=== PATIENT | female | born 1960 | race Caucasian/White ===

== ENCOUNTER 2022-06-16 12:06 | Outpatient (REF) | payer OTHER, SELFPAY ==
[2022-06-19 11:27] LABS: H Pylori Breath Test Positive (Negative)
== END 2022-06-16 12:07 | disposition home or self-care (01) ==
LOC: CF 12:06
PROVIDERS: PCP Internal Medicine; Visit Provider Physician Assistant
DX: K21.9 Gastro-esophageal reflux disease without esophagitis (principal); A04.8 Other specified bacterial intestinal infections; Z79.899 Other long term (current) drug therapy
CPT/HCPCS: 36415; 83013

== ENCOUNTER 2022-09-01 | Outpatient (REF) | payer OTHER, SELFPAY ==
[2022-09-04 11:46] LABS: H Pylori Breath Test Negative (Negative)
== END 2022-09-01 00:01 | disposition home or self-care (01) ==
LOC: HO.LNP
PROVIDERS: Visit Provider Physician Assistant
DX: A04.8 Other specified bacterial intestinal infections (principal)
CPT/HCPCS: 83013

== ENCOUNTER → 2022-09-01 09:00 | Outpatient (BNVA) | payer OTHER, SELFPAY | PROVIDERS: PCP Internal Medicine; Visit Provider Physician Assistant | DX: Z13.89 Encounter for screening for other disorder (principal) ==